=== PATIENT | female | born 1985 | race American Indian/Alaskan Native ===

== ENCOUNTER 2021-04-17 16:53 | Emergency (ER) | payer BC ==
[2021-04-17 16:57] VITALS: BP 123/84
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
[2021-04-17] MEDS ORDERED: ACETAMINOPHEN 500 MG TAB PO STA (17:45)
[2021-04-17] MEDS ORDERED: IBUPROFEN 800 MG TAB PO STA (17:45)
== END 2021-04-17 18:28 | disposition home or self-care (01) ==
LOC: ED 16:53
DX: M54.2 Cervicalgia (principal); M54.50 Low back pain, unspecified; V49.40XA Driver injured in collision with unspecified motor vehicles in traffic accident, initial encounter; Y93.89 Activity, other specified; Y92.89 Other specified places as the place of occurrence of the external cause; Y99.8 Other external cause status
CPT/HCPCS: 99282